=== PATIENT | female | born 1990 | race American Indian/Alaskan Native ===

== ENCOUNTER 2019-04-19 21:45 | Emergency (ER) | payer SELFPAY ==
[2019-04-20] MEDS ORDERED: TORADOL IM ONE (00:21)
--- NOTE | 2019-04-20 00:51 | XRay Report ---
CHEST 2 VIEWS INDICATION / CLINICAL INFORMATION: R chest pain. COMPARISON: None available. FINDINGS: SUPPORT DEVICES: None. HEART / MEDIASTINUM: No significant abnormality. LUNGS / PLEURA: No significant pulmonary or pleural abnormality. No pneumothorax. ADDITIONAL FINDINGS: No significant additional findings. IMPRESSION: 1. No acute findings. Signer Name: Pb Nash MD Signed: 04/20/2019 12:47 AM Workstation Name: [id number]
--- NOTE | 2019-04-20 01:02 | Emergency Department Report ---
ED General Adult HPI - General Chief complaint: Extremity Problem,Nontraumatic Stated complaint: RT ARM/SHOULDER PAIN Time Seen by Provider: 04/20/19 00:06 Source: patient Mode of arrival: Ambulatory Limitations: No Limitations - History of Present Illness Initial comments: 28-year-old female presents to ED with complaint of right-sided chest and should er pain. Patient states she has been diagnosed with pleurisy in the past, states today's symptoms are similar in nature to her previous diagnosis, however the pain isn't as bad today. Reports pleuritic pain. She reports shortness of breath when bending down. She denies cough or fever, denies leg pain or swelling. -: days(s) (3) Location: chest, right, upper extremity Radiation: back Quality: sharp Consistency: intermittent Improves with: none Worsens with: movement, other (deep breath) Associated Symptoms: chest pain, shortness of breath. denies: cough, fever/chills, nausea/vomiting - Related Data Previous Rx's Medication Instructions Recorded Last Taken Type Naproxen [Naprosyn] 500 mg PO BID #20 tablet 04/20/19 Unknown Rx Allergies Allergy/AdvReac Type Severity Reaction Status Date / Time No Known Allergies Allergy Unverified 04/19/19 23:09 ED Review of Systems ROS: Stated complaint: RT ARM/SHOULDER PAIN Other details as noted in HPI Comment: All other systems reviewed and negative Constitutional: denies: chills, fever Respiratory: shortness of breath. denies: cough Cardiovascular: chest pain Musculoskeletal: other (denies leg pain and swelling) ED Past Medical Hx - Past Medical History Previous Medical History?: No - Surgical History Past Surgical History?: No - Social History Smoking Status: Never Smoker Substance Use Type: None - Medications Home Medications: Home Medications Medication Instructions Recorded Confirmed Last Taken Type Naproxen [Naprosyn] 500 mg PO BID #20 tablet 04/20/19 Unknown Rx ED Physical Exam - General Limitations: No Limitations General appearance: alert, in no apparent distress - Head Head exam: Present: atraumatic, normocephalic - Eye Eye exam: Present: normal appearance, PERRL, EOMI - ENT ENT exam: Present: mucous membranes moist - Neck Neck exam: Present: normal inspection - Respiratory Respiratory exam: Present: normal lung sounds bilaterally. Absent: respiratory distress, wheezes, rales, rhonchi - Cardiovascular Cardiovascular Exam: Present: regular rate, normal rhythm - GI/Abdominal GI/Abdominal exam: Present: soft. Absent: distended, tenderness - Extremities Exam Extremities exam: Present: normal inspection. Absent: pedal edema, calf te nderness - Neurological Exam Neurological exam: Present: alert, oriented X3 - Psychiatric Psychiatric exam: Present: normal affect, normal mood - Skin Skin exam: Present: warm, dry, intact, normal color ED Course Vital Signs 04/19/19 04/20/19 04/20/19 23:09 01:07 02:03 Temperature 98.7 F Pulse Rate 84 Respiratory 16 16 18 Rate Blood Pressure 139/85 Blood Pressure [Right] O2 Sat by Pulse 100 Oximetry 04/20/19 04:20 Temperature Pulse Rate 80 Respiratory 16 Rate Blood Pressure Blood Pressure 135/92 [Right] O2 Sat by Pulse 100 Oximetry ED Medical Decision Making - Lab Data Result diagrams: 04/20/19 01:40 04/20/19 01:40 - Radiology Data Radiology results: report reviewed, image reviewed - Medical Decision Making - vitals normal - CTA Chest obtained due to elevated D-dimer; CTA normal - outpt f/u advised - return precautions given - Differential Diagnosis pleurisy, PE, pneumothorax, pneumonia Critical care attestation.: If time is entered above; I have spent that time in minutes in the direct care of this critically ill patient, excluding procedure time. ED Disposition Clinical Impression: Pleurisy Disposition: DC-01 TO HOME OR SELFCARE Is pt being admited?: No Condition: Stable Instructions: Pleurisy (ED) Prescriptions: Naproxen [Naprosyn] 500 mg PO BID #20 tablet Referrals: PRIMARY MD ERNST [Primary Care Provider] - 3-5 Days [facility] [Provider Group] - 3-5 Days
[2019-04-20 02:03] LABS: Basophils # (Auto) 0.1 K/mm3 (0.0-0.1); Basophils % (Auto) 0.8 % (0.0-1.8); Eosinophils # (Auto) 0.2 K/mm3 (0.0-0.4); Eosinophils % (Auto) 2.5 % (0.0-4.3); Hemoglobin 11.2 gm/dl (10.1-14.3); Lymphocytes # (Auto) 2.5 K/mm3 (1.2-5.4); Lymphocytes % (Auto) 33.8 % (13.4-35.0); Mean Corpuscular HGB Conc 33 % (30-34); Mean Corpuscular Volume 74 fl (79-97); Monocytes # (Auto) 0.5 K/mm3 (0.0-0.8); Platelet Count 320 K/mm3 (140-440); Red Blood Count 4.59 M/mm3 (3.65-5.03); Red Cell Distribution Width 15.3 % (13.2-15.2)
[2019-04-20 02:27] LABS: BUN/Creatinine Ratio 16; Blood Urea Nitrogen 14 mg/dL (7-17); Calcium 9.4 mg/dL (8.4-10.2); Hemolysis Index 6
[2019-04-20 02:28] LABS: INR 1.07 (0.87-1.13)
[2019-04-20 02:29] LABS: Partial Thromboplastin Time 30.7 Sec. (24.2-36.6)
--- NOTE | 2019-04-20 03:48 | Cat Scan Report ---
CTA CHEST WITH IV CONTRAST INDICATION: R chest pain. Right-sided chest pain with dyspnea. TECHNIQUE: Axial CT images were obtained through the chest after injection of 100 mL IV contrast. 3 plane MIP re constructions were produced. All CT scans at this location are performed using CT dose reduction for ALARA by means of automated exposure control. COMPARISON: None available. FINDINGS: PULMONARY ARTERIES: No pulmonary emboli. AORTA AND ARTERIES: No acute abnormality. MEDIASTINUM: No mass, lymphadenopathy or other significant abnormality. The heart is normal in size w ithout a pericardial effusion. The trachea and main bronchi are patent and normal in caliber. LUNGS: No suspicious consolidation, nodule or mass. No pneumothorax or pleural effusion. ADDITIONAL FINDINGS: None. UPPER ABDOMEN: No acute findings. BONES: No significant osseous abnormality. IMPRESSION: 1. No CT evidence for pulmonary embolism. 2. No acute findings. Signer Name: Pb Nash MD Signed: 04/20/2019 3:43 AM Workstation Name: [id number]
[2019-04-20 04:20] VITALS: BP 135/92
== END 2019-04-20 04:20 | disposition home or self-care (01) ==
LOC: ED 21:45
DX: R09.1 Pleurisy (principal); M25.511 Pain in right shoulder
CPT/HCPCS: 36415; 71046; 71275; 80048; 84703; 85025; 85379; 85610; 85730; 96372; 99284; J1885; Q9967

== ENCOUNTER 2019-08-06 14:10 | Emergency (ER) | payer SELFPAY ==
[2019-08-06 15:43] VITALS: BP 128/94
--- NOTE | 2019-08-06 15:52 | Emergency Department Report ---
Chief Complaint: Extremity Problem,Nontraumatic Stated Complaint: LT FOOT SWOLLEN - HPI History of Present Illness: 28 yo F presents to ED w/ left foot pain, mild swelling x 3 days. Pt denies injury. Also denies fever, redness. Reports has not taken anything at home for pain. - ROS Review of Systems: Comment: All other systems reviewed and negative Constitutional: denies: chills, fever Musculoskeletal: per HPI - Exam Vital Signs: Vital Signs 08/06/19 14:16 Temperature 99.0 F Pulse Rate 108 H Respiratory 16 Rate Blood Pressure 128/94 O2 Sat by Pulse 100 Oximetry Physical Exam: - General Limitations: No Limitations General appearance: alert, in no apparent distress - Head Head exam: Present: atraumatic, normocephalic - Eye Eye exam: Present: normal appearance, EOMI - ENT ENT exam: Present: mucous membranes moist - Neck Neck exam: Present: normal inspection - Respiratory Respiratory exam: Present: normal lung sounds bilaterally. Absent: respiratory distress - Cardiovascular Cardiovascular Exam: Present: regular rate, normal rhythm - GI/Abdominal GI/Abdominal exam: Present: soft. Absent: distended, tenderness - Extremities Exam Extremities exam: no significant swelling present to left foot; no erythema present; lateral left foot tenderness; cap refill nml, DP pulse normal - Neurological Exam Neurological exam: Present: alert, oriented X3; no motor or sensory deficits - Psychiatric Psychiatric exam: Present: normal affect, normal mood - Skin Skin exam: Present: warm, dry, intact, normal color MSE screening note: Focused history and physical exam performed. Due to findings the following was ordered: n/a Pt w/ nontraumatic left foot pain. Tender to palpation. No sign of infection. Vitals are normal. Pt advised to take anti-inflammatory medication such as ibuprofen, advised to ice the extremity, and apply an JONELLE wrap. Pt has no emergent medical condition at this time. Outpt resources given. Return precautions given. ED Medical Decision Making - Medical Decision Making Pt w/ nontraumatic left foot pain. Tender to palpation. No sign of infection. Vitals are normal. Pt advised to take anti-inflammatory medication such as ibuprofen, advised to ice the extremity, and apply an JONELLE wrap. Pt has no emergent medical condition at this time. Outpt resources given. Return precautions given. ED Disposition for MSE Clinical Impression: Left foot pain Disposition: Z- MED SCREENING EXAM-LEFT Is pt being admited?: No Condition: Stable Instructions: Arthralgia (ED) Referrals: [facility] [Provider Group] - 3-5 Days [facility] [Outside] - 3-5 Days Time of Disposition: 15:51
== END 2019-08-06 16:20 | disposition left against medical advice (07) ==
LOC: ED 14:10
DX: M79.672 Pain in left foot (principal)
CPT/HCPCS: 99282

== ENCOUNTER 2019-08-13 12:51 | Emergency (ER) | payer SELFPAY ==
--- NOTE | 2019-08-13 13:35 | Event Note ---
ED Screening Note ED Screening Note: 28 yo female presents with right elbow pain and swelling for 2 days. No trauma or injury. This initial assessment/diagnostic orders/clinical plan/treatment(s) is/are subject to change based on patients health status, clinical progression and re- assessment by fellow clinical providers in the ED. Further treatment and workup at subsequent clinical providers discretion. Patient/guardian urged not to elope from the ED as their condition may be serious if not clinically assessed and managed. Initial orders include: xr
--- NOTE | 2019-08-13 14:21 | XRay Report ---
RIGHT, 3 VIEWS INDICATION / CLINICAL INFORMATION: elbow pain swelling. COMPARISON: None available. FINDINGS: No fracture, dislocation, or joint distention is identified. IMPRESSION: Negative exam. Signer Name: Shellie Bernard MD Signed: 08/13/2019 2:17 PM Workstation Name: [id number]
[2019-08-13] MEDS ORDERED: KETOROLAC 30 MG/1 ML INJ IM ONE (20:44)
--- NOTE | 2019-08-13 20:48 | Emergency Department Report ---
Upper Extremity - HPI Chief Complaint: Extremity Injury, Upper Stated Complaint: RT ELBOW PAIN/SWOLLEN Time Seen by Provider: 08/13/19 20:42 Upper Extremity: Right Arm, Right Elbow Occurred When: 2 Days Severity: moderate Symptoms: Yes Pain with Movement, Yes Limited Range of Movement (pain), Yes Swelling (Elbow) Other History: 28-year-old -Turkmen female presents to the emergency room for right elbow and upper arm pain and swelling x2 days. Patient denies any trauma or injury. Patient does admit that she places her elbow on hard surfaces such as her desk and her counters at home. Patient is taken nothing for pain. ED Review of Systems ROS: Stated complaint: RT ELBOW PAIN/SWOLLEN Other details as noted in HPI Comment: All other systems reviewed and negative ED Past Medical Hx - Past Medical History Previous Medical History?: Yes Additional medical history: Vaginal delivery x 4 - Surgical History Past Surgical History?: No - Social History Smoking Status: Never Smoker Substance Use Type: None - Medications Home Medications: Home Medications Medication Instructions Recorded Confirmed Last Taken Type Naproxen [Naprosyn] 500 mg PO BID #20 tablet 04/20/19 Unknown Rx Ibuprofen [Motrin 800 MG tab] 800 mg PO Q8HR PRN #30 tablet 08/13/19 Unknown Rx Upper Extremity Exam - Exam General: Vital signs noted. No distress. Alert and acting appropriately. Head and Torso: No HEENT Abnormality, No Neck Tenderness, No Chest/Lungs Abnormality, No Abdominal Tenderness, No Back Tenderness Shoulder Exam: Yes Normal Range of Motion in Shoulder, No Shoulder Tenderness, No Clavicle Tenderness, No Shoulder Deformity, No AC Joint Tenderness Arm Exam: Yes Arm/Humerus Tenderness, No Arm Deformity Elbow: Yes Elbow Tenderness, No Normal Range of Motion in Elbow (Pain with movement and swelling) Forearm: No Forearm Tenderness, No Forearm Deformity, No Pain with Pronation, No Pain with Supination Wrist: Yes Normal ROM in Wrist, No Wrist Tenderness, No Wrist Deformity, No Snuffbox Tenderness, No Pain with Axial Thumb Compression Hand: Yes Normal ROM in Digit(s), No Hand Tenderness, No Hand Deformity, No Digit Tenderness, No Digit(s) Deformity, No Tendon Dysfunction CMS Exam: No Broken Skin, No Normal Distal Pulses, No Normal Capillary Refill, No Normal Distal Sensation ED Course Vital Signs 08/13/19 12:59 Temperature 98.8 F Pulse Rate 97 H Respiratory 16 Rate Blood Pressure 139/80 O2 Sat by Pulse 100 Oximetry ED Medical Decision Making - Radiology Data Radiology results: report reviewed Patient: RAMONA BERNAL MR#: [id number] : 1990 Acct:[id number] Age/Sex: 28 / F ADM Date: 08/13/19 Loc: ED Attending Dr: Ordering Physician: Radha Velazquez MD Date of Service: 08/13/19 Procedure(s): XR elbow 3+V RT Accession Number(s): [id number] cc: Radha Velazquez MD Fluoro Time In Minutes: RIGHT, 3 VIEWS INDICATION / CLINICAL INFORMATION: elbow pain swelling. COMPARISON: None available. FINDINGS: No fracture, dislocation, or joint distention is identified. IMPRESSION: Negative exam. Signer Name: Shellie Bernard MD Signed: 08/13/2019 2:17 PM Workstation Name: [id number] Transcribed By: JR Dictated By: Shellie Bernard MD Electronically Authenticated By: Shellie Bernard MD Signed Date/Time: 08/13/191416 DD/ 15 TD/TT: - Medical Decision Making 28-year-old -Turkmen female presents to the emergency room for right elbow and upper arm pain and swelling x2 days. Patient denies any trauma or injury. Patient does admit that she places her elbow on hard surfaces such as her desk and her counters at home. Patient is taken nothing for pain. X-ray of right arm and elbow are negative for any acute abnormalities. Patient appears to have a right olecranon bursitis. Discussed with patient we will give her a Toradol injection for pain management send her home with this prescription for ibuprofen 800 mg every 6-8 hours as needed. Also discussed with patient we will wrap her right elbow with an Mauricio bandage and refer her to Dr. Villagomez. Patient verbalized understanding Critical care attestation.: If time is entered above; I have spent that time in minutes in the direct care of this critically ill patient, excluding procedure time. ED Disposition Clinical Impression: Olecranon bursitis of right elbow Disposition: DC-01 TO HOME OR SELFCARE Is pt being admited?: No Does the pt Need Aspirin: No Condition: Stable Instructions: Elbow Bursitis (ED) Additional Instructions: X-rays negative for any acute abnormalities. It appears that you have a or chronic bursitis of the right elbow. Treatment is ibuprofen or Aleve Tylenol. Mauricio wrap light duty follow-up with orthopedic provider. Prescriptions: Ibuprofen [Motrin 800 MG tab] 800 mg PO Q8HR PRN #30 tablet PRN Reason: Pain , Severe (7-10) Referrals: PRIMARY CARE, [Primary Care Provider] - 3-5 Days Forms: Work/School Release Form(ED)
[2019-08-13 21:03] VITALS: BP 124/76
== END 2019-08-13 21:01 | disposition home or self-care (01) ==
LOC: ED 12:51
DX: M70.21 Olecranon bursitis, right elbow (principal)
CPT/HCPCS: 73080; 96372; 99283; J1885

== ENCOUNTER 2020-03-04 10:50 | Emergency (ER) | payer SELFPAY ==
[2020-03-04 10:58] VITALS: BP 118/80
[2020-03-04] MEDS ORDERED: IBUPROFEN 800 MG TAB PO ONE (11:57)
--- NOTE | 2020-03-04 11:57 | Emergency Department Report ---
ED Lower Extremity HPI - General Chief Complaint: Extremity Injury, Lower Stated Complaint: LT FT SWOLLEN Time Seen by Provider: 03/04/20 11:31 Source: patient Mode of arrival: Ambulatory Limitations: No Limitations - History of Present Illness Initial Comments: This is a 29-year-old female nontoxic, well nourished in appearance, no acute signs of distress presents to the ED with c/o of left foot pain and swelling 1 week. Patient denies any trauma. Patient denies any numbness, tingling, fever, chills, nausea, vomiting, chest pain, shortness of breath, headache, stiff neck. Patient denies any joint swelling or joint redness. Patient denies decreased range of motion. Patient stated has decreased gait due to pain. Patient denies any allergies or significant past medical history. MD Complaint: foot injury -: days(s) Injury: Foot: Left Severity: mild Severity scale (0 -10): 8 Improves With: immobilization Worsens With: weight bearing, movement, palpation Associated Symptoms: swelling, able to partially bear weight. denies: snap/pop sensation, numbness, tingling, unable to bear weight - Related Data Previous Rx's Medication Instructions Recorded Last Taken Type Naproxen [Naprosyn] 500 mg PO BID #20 tablet 04/20/19 Unknown Rx Ibuprofen [Motrin 800 MG tab] 800 mg PO Q8HR PRN #30 tablet 08/13/19 Unknown Rx Naproxen 500 mg PO Q12H PRN #12 tablet 03/04/20 Unknown Rx Allergies Allergy/AdvReac Type Severity Reaction Status Date / Time No Known Allergies Allergy Unverified 04/19/19 23:09 ED Review of Systems ROS: Stated complaint: LT FT SWOLLEN Other details as noted in HPI Constitutional: denies: chills, fever Eyes: denies: eye pain, eye discharge, vision change ENT: denies: ear pain, throat pain Respiratory: denies: cough, shortness of breath, wheezing Cardiovascular: denies: chest pain, palpitations Endocrine: no symptoms reported Gastrointestinal: denies: abdominal pain, nausea, diarrhea Genitourinary: denies: urgency, dysuria, discharge Musculoskeletal: denies: back pain, joint swelling, arthralgia Skin: denies: rash, lesions Neurological: denies: headache, weakness, paresthesias Psychiatric: denies: anxiety, depression Hematological/Lymphatic: denies: easy bleeding, easy bruising ED Past Medical Hx - Past Medical History Previous Medical History?: No Additional medical history: Vaginal delivery x 4 - Surgical History Past Surgical History?: No - Social History Smoking Status: Never Smoker Substance Use Type: None - Medications Home Medications: Home Medications Medication Instructions Recorded Confirmed Last Taken Type Naproxen [Naprosyn] 500 mg PO BID #20 tablet 04/20/19 Unknown Rx Ibuprofen [Motrin 800 MG tab] 800 mg PO Q8HR PRN #30 tablet 08/13/19 Unknown Rx Naproxen 500 mg PO Q12H PRN #12 tablet 03/04/20 Unknown Rx ED Physical Exam - General Limitations: No Limitations General appearance: alert, in no apparent distress - Head Head exam: Present: atraumatic, normocephalic - Neck Neck exam: Present: normal inspection, full ROM. Absent: tenderness, meningismus, lymphadenopathy - Extremities Exam Extremities exam: Present: full ROM, tenderness, normal capillary refill. Absent: joint swelling - Expanded Lower Extremity Exam Left Hip exam: Present: normal inspection, full ROM. Absent: tenderness, swelling Upper Leg exam: Present: normal inspection, full ROM. Absent: tenderness, swelling Knee exam: Present: normal inspection, full ROM. Absent: tenderness, swelling Lower Leg exam: Present: normal inspection, full ROM. Absent: tenderness, swelling, abrasion, laceration, ecchymosis, deformity, crepidus, dislocation, erythema, palpable cord, Maria De Jesus's sign Ankle exam: Present: normal inspection, full ROM. Absent: tenderness, swelling, abrasion, laceration, ecchymosis, deformity, crepidus, dislocation, erythema, anterior draw sign Foot/Toe exam: Present: full ROM, tenderness, swelling. Absent: abrasion, laceration, ecchymosis, deformity, crepidus, dislocation, erythema, amputation, puncture wound, foreign body, calcaneal tenderness, tenderness at base of 5th metatarsal, nail avulsion, subungual hematoma Neuro vascular tendon exam: Present: no vascular compromise Gait: Positive: observed and limited by pain - Back Exam Back exam: Present: full ROM - Neurological Exam Neurological exam: Present: alert, oriented X3 - Psychiatric Psychiatric exam: Present: normal affect, normal mood - Skin Skin exam: Present: warm, dry, intact, normal color. Absent: rash ED Course Vital Signs 03/04/20 10:54 Temperature 97.8 F Pulse Rate 80 Respiratory 18 Rate Blood Pressure 118/80 O2 Sat by Pulse 100 Oximetry - Reevaluation(s) Reevaluation #1: 03/04/20 11:56 Patient is speaking in full sentences with no signs of distress noted. ED Lower Extremity MDM - Lab Data Lab Results 03/04/20 Range/Units 12:07 Uric Acid 5.0 (3.5-7.6) mg/dL - Radiology Data Referring Physician: BETH WOLF Patient Name: RAMONA BERNAL Date of : 1990 Sex: Female Report Date: 2020-03-04 Report Status: Finalized [address] [address] XRay Report Signed Patient: RAMONA BERNAL MR#: [id number] : 1990 Acct:[id number] Age/Sex: 29 / F ADM Date: 03/04/20 Loc: ED Attending Dr: Ordering Physician: BETH WOLF NP Date of Service: 03/04/20 Procedure(s): XR foot 3+V LT Accession Number(s): [id number] cc: BETH WOLF NP Fluoro Time In Minutes: LEFT FOOT 3 VIEW(S) INDICATION / CLINICAL INFORMATION: left foot pain and swelling COMPARISON: None available. FINDINGS: BONES / JOINT(S): No acute fracture or subluxation. No significant arthritis. SOFT TISSUES: No significant abnormality. ADDITIONAL FINDINGS: None. IMPRESSION: No acute osseous abnormality. Signer Name: Shaneka Lee MD Signed: 03/04/2020 12:13 PM Workstation Name: [id number] Transcribed By: Dictated By: SHANEKA LEE Electronically Authenticated By: SHANEKA LEE Signed Date/Time: 03/04/20 1213 - Medical Decision Making This is a 29-year-old female that presents with left foot strain. Patient is stable and was examined by me. I referred patient to an orthopedic doctor for further evaluation for possible MRI. X-ray has been obtained and dictated by the radiologist. Patient is notified of the x-ray report with noted by the patient. No joint swelling. No ecchymosis. no joint redness or swelling. Not warm to touch. No signs of cellulites present. Patient was instructed to RICE therapy. Patient received Motrin for pain. Patient is discharged with Naproxen. At time of discharge, the patient does not seem toxic or ill in appearance. No acute signs of distress noted. Patient agrees to discharge treatment plan of care. No further questions noted by the patient. Critical care attestation.: If time is entered above; I have spent that time in minutes in the direct care of this critically ill patient, excluding procedure time. ED Disposition Clinical Impression: Strain of left foot Qualifiers: Encounter type: initial encounter Qualified Code(s): S96.912A - Strain of unspecified muscle and tendon at ankle and foot level, left foot, initial encounter Disposition: TO HOME OR SELFCARE Is pt being admited?: No Does the pt Need Aspirin: No Condition: Stable Instructions: RICE Therapy (ED) Additional Instructions: Follow-up with a orthopedic doctor in 3-5 days or if symptoms worsen and continue return to emergency room as soon as possible. Prescriptions: Naproxen 500 mg PO Q12H PRN #12 tablet PRN Reason: Pain , Severe (7-10) Referrals: ARNALDO REEDBATH MD SUDEEP [Primary Care Provider] - 3-5 Days PRIMARY CAREMD [Referring] - 3-5 Days EMILIANA HOLGUIN MD [Staff Physician] - 3-5 Days Forms: Work/School Release Form(ED)
--- NOTE | 2020-03-04 12:17 | XRay Report ---
LEFT FOOT 3 VIEW(S) INDICATION / CLINICAL INFORMATION: left foot pain and swelling COMPARISON: None available. FINDINGS: BONES / JOINT(S): No acute fracture or subluxation. No significant arthritis. SOFT TISSUES: No significant abnormality. ADDITIONAL FINDINGS: None. IMPRESSION: No acute osseous abnormality. Signer Name: Ryland Lee MD Signed: 03/04/2020 12:13 PM Workstation Name: [id number]
== END 2020-03-04 13:41 | disposition home or self-care (01) ==
LOC: ED 10:50
DX: S96.912A Strain of unspecified muscle and tendon at ankle and foot level, left foot, initial encounter (principal); Z79.899 Other long term (current) drug therapy; X58.XXXA Exposure to other specified factors, initial encounter; Y93.89 Activity, other specified; Y92.89 Other specified places as the place of occurrence of the external cause; Y99.8 Other external cause status
CPT/HCPCS: 36415; 84550

== ENCOUNTER 2020-05-03 11:18 | Emergency (ER) | payer SELFPAY ==
[2020-05-03 11:24] VITALS: BP 120/79
--- NOTE | 2020-05-03 12:02 | XRay Report ---
LEFT KNEE 3 VIEWS INDICATION / CLINICAL INFORMATION: pain, no injury COMPARISON: None available. FINDINGS: BONES / JOINT(S): No acute fracture or subluxation. No significant arthritis. SOFT TISSUES: There is a small effusion in the suprapatella bursa. ADDITIONAL FINDINGS: None. Signer Name: Jus Flaherty MD Signed: 05/03/2020 11:58 AM Workstation Name: [id number]
--- NOTE | 2020-05-03 12:27 | Emergency Department Report ---
ED Lower Extremity HPI - General Chief Complaint: Extremity Injury, Lower Stated Complaint: LT KNEE SWOLLEN Time Seen by Provider: 05/03/20 12:07 Source: patient Mode of arrival: Ambulatory Limitations: No Limitations - History of Present Illness Initial Comments: This is a 29-year-old female nontoxic, well nourished in appearance, no acute signs of distress presents to the ED with c/o of left knee pain 2 days. Patient denies any injuires or trauma. Patient denies any numbness, tingling, fever, chills, nausea, vomiting, chest pain, shortness of breath, headache, stiff neck. Patient denies any joint swelling or joint redness. Patient denies decreased range of motion. Patient stated has decreased gait due to pain. Patient denies any allergies or significant past medical history. MD Complaint: knee injury -: days(s) Injury: Knee: Left Severity: mild Severity scale (0 -10): 8 Improves With: immobilization Worsens With: weight bearing, movement, palpation Associated Symptoms: ambulatory. denies: snap/pop sensation, swelling, numbness, tingling, unable to bear weight, able to partially bear weight - Related Data Previous Rx's Medication Instructions Recorded Last Taken Type Naproxen [Naprosyn] 500 mg PO BID #20 tablet 04/20/19 Unknown Rx Ibuprofen [Motrin 800 MG tab] 800 mg PO Q8HR PRN #30 tablet 08/13/19 Unknown Rx Naproxen 500 mg PO Q12H PRN #12 tablet 03/04/20 Unknown Rx Naproxen 500 mg PO Q12H PRN #12 tablet 05/03/20 Unknown Rx Allergies Allergy/AdvReac Type Severity Reaction Status Date / Time No Known Allergies Allergy Verified 05/03/20 11:21 ED Review of Systems ROS: Stated complaint: LT KNEE SWOLLEN Other details as noted in HPI Constitutional: denies: chills, fever Eyes: denies: eye pain, eye discharge, vision change ENT: denies: ear pain, throat pain Respiratory: denies: cough, shortness of breath, wheezing Cardiovascular: denies: chest pain, palpitations Endocrine: no symptoms reported Gastrointestinal: denies: abdominal pain, nausea, diarrhea Genitourinary: denies: urgency, dysuria, discharge Musculoskeletal: denies: back pain, joint swelling, arthralgia Skin: denies: rash, lesions Neurological: denies: headache, weakness, paresthesias Psychiatric: denies: anxiety, depression Hematological/Lymphatic: denies: easy bleeding, easy bruising ED Past Medical Hx - Past Medical History Previous Medical History?: No Additional medical history: Vaginal delivery x 4 - Surgical History Past Surgical History?: No - Social History Smoking Status: Never Smoker Substance Use Type: None - Medications Home Medications: Home Medications Medication Instructions Recorded Confirmed Last Taken Type Naproxen [Naprosyn] 500 mg PO BID #20 tablet 04/20/19 Unknown Rx Ibuprofen [Motrin 800 MG tab] 800 mg PO Q8HR PRN #30 tablet 08/13/19 Unknown Rx Naproxen 500 mg PO Q12H PRN #12 tablet 03/04/20 Unknown Rx Naproxen 500 mg PO Q12H PRN #12 tablet 05/03/20 Unknown Rx ED Physical Exam - General Limitations: No Limitations General appearance: alert, in no apparent distress - Head Head exam: Present: atraumatic, normocephalic - Eye Eye exam: Present: normal appearance - Neck Neck exam: Present: normal inspection, full ROM - Respiratory Respiratory exam: Absent: respiratory distress - Cardiovascular Cardiovascular Exam: Present: regular rate - Extremities Exam Extremities exam: Present: normal inspection, full ROM, tenderness, normal capillary refill. Absent: joint swelling, calf tenderness - Expanded Lower Extremity Exam Left Hip exam: Present: normal inspection, full ROM. Absent: tenderness, swelling Upper Leg exam: Present: normal inspection, full ROM. Absent: tenderness, swelling Knee exam: Present: normal inspection, full ROM, tenderness, full knee exte nsion. Absent: swelling, abrasion, laceration, ecchymosis, deformity, crepidus, dislocation, erythema, effusion, pain w/ pronation/supination, posterior draw sign, pain/laxity with valgus, pain/laxity with varus Lower Leg exam: Present: normal inspection, full ROM. Absent: tenderness, swelling Ankle exam: Present: normal inspection, full ROM. Absent: tenderness, swelling Foot/Toe exam: Present: normal inspection, full ROM. Absent: tenderness, swelling Neuro vascular tendon exam: Present: no vascular compromise Gait: Positive: observed and normal 1 - pain here - Back Exam Back exam: Present: normal inspection, full ROM - Neurological Exam Neurological exam: Present: alert, oriented X3, normal gait - Psychiatric Psychiatric exam: Present: normal affect, normal mood - Skin Skin exam: Present: warm, dry, intact, normal color. Absent: rash ED Course Vital Signs 05/03/20 11:21 Temperature 97.6 F Pulse Rate 94 H Respiratory 20 Rate Blood Pressure 120/79 [Left] O2 Sat by Pulse 100 Oximetry - Reevaluation(s) Reevaluation #2: 05/03/20 12:25 Patient is speaking in full sentences with no signs of distress noted. ED Lower Extremity MDM - Lab Data Referring Physician: RUT TOLEDO Patient Name: RAMONA BERNAL Date of : 1990 Sex: Female Report Date: 2020-05-03 Report Status: [place] [address] XRay Report Signed Patient: RAMONA BERNAL MR#: [id number] : 1990 Acct:[id number] Age/Sex: 29 / F ADM Date: 05/03/20 Loc: ED Attending Dr: Ordering Physician: RUT TOLEDO Date of Service: 05/03/20 Procedure(s): XR knee 3V LT Accession Number(s): [id number] cc: RUT TOLEDO Fluoro Time In Minutes: LEFT KNEE 3 VIEWS INDICATION / CLINICAL INFORMATION: pain, no injury COMPARISON: None available. FINDINGS: BONES / JOINT(S): No acute fracture or subluxation. No significant arthritis. SOFT TISSUES: There is a small effusion in the suprapatella bursa. ADDITIONAL FINDINGS: None. Signer Name: Jus Flaherty MD Signed: 05/03/2020 11:58 AM Workstation Name: [id number] Transcribed By: SS Dictated By: Jus Flaherty MD Electronically Authenticated By: Jus Flaherty MD Signed Date/Time: 05/03/20 1158 DD/ 1157 TD/TT: - Medical Decision Making This is a 29-year-old female that presents with left knee strain. Patient is stable and was examined by me. I referred patient to an orthopedic doctor for further evaluation for possible MRI. X-ray has been obtained and dictated by the radiologist. Patient is notified of the x-ray report with noted by the patient. Patient does have normal gait with no tenderness and no joint swelling. No ecchymosis. no joint redness or swelling. Not warm to touch. No signs of cellulites present. Patient received azul wrap. Patient was instructed to RICE therapy. Patient is discharged with Naproxen. At time of discharge, the patient does not seem toxic or ill in appearance. No acute signs of distress noted. Patient agrees to discharge treatment plan of care. No further questions noted by the patient. Critical care attestation.: If time is entered above; I have spent that time in minutes in the direct care of this critically ill patient, excluding procedure time. ED Disposition Clinical Impression: Suprapatellar bursitis of left knee Strain of left knee Qualifiers: Encounter type: initial encounter Qualified Code(s): S86.912A - Strain of unspecified muscle(s) and tendon(s) at lower leg level, left leg, initial encounter Disposition: DC-01 TO HOME OR SELFCARE Is pt being admited?: No Does the pt Need Aspirin: No Condition: Stable Instructions: RICE Therapy for Routine Care of Injuries, [id number], Acute Knee Pain, Adult, Bursitis, [id number]-[id number] Additional Instructions: Follow-up with a orthopedic doctor in 3-5 days or if symptoms worsen and continue return to emergency room as soon as possible. No physical activity that extremity until cleared by orthopedic doctor Prescriptions: Naproxen 500 mg PO Q12H PRN #12 tablet PRN Reason: Pain , Severe (7-10) Referrals: PRIMARY MD ERNST [Primary Care Provider] - 3-5 Days EMILIANA HOLGUIN MD [Staff Physician] - 3-5 Days Forms: Work/School Release Form(ED)
== END 2020-05-03 12:43 | disposition home or self-care (01) ==
LOC: ED 11:18
DX: S86.912A Strain of unspecified muscle(s) and tendon(s) at lower leg level, left leg, initial encounter (principal); M70.42 Prepatellar bursitis, left knee; X58.XXXA Exposure to other specified factors, initial encounter; Y93.89 Activity, other specified; Y92.89 Other specified places as the place of occurrence of the external cause; Y99.8 Other external cause status
CPT/HCPCS: 99283

== ENCOUNTER 2021-03-23 05:07 | Emergency (ER) | payer SELFPAY | END 2021-03-23 07:30 | disposition left against medical advice (07) | LOC: ED 05:07 | DX: M79.604 Pain in right leg (principal); Z53.21 Procedure and treatment not carried out due to patient leaving prior to being seen by health care provider ==

== ENCOUNTER 2021-04-27 09:32 | Emergency (ER) | payer SELFPAY ==
[2021-04-27] MEDS ORDERED: dexAMETHasone 20 MG/5 ML VIAL IM ONE (10:36)
[2021-04-27] MEDS ORDERED: KETOROLAC 60 MG/2 ML INJ IM ONE (10:36)
--- NOTE | 2021-04-27 10:39 | Emergency Department Report ---
ED General Adult HPI - General Chief complaint: Extremity Injury, Lower Stated complaint: rt foot pain,can walk swollen Time Seen by Provider: 04/27/21 10:29 Source: patient Mode of arrival: Wheelchair Limitations: No Limitations - History of Present Illness Initial comments: Patient is a 30-year-old female presents emergency with complaints of right foot pain and swelling that began last night. She denies any fall or injury. Patient has had issues with multiple joints in the past causing pain and swelling. She has never followed up with a primary care doctor. She denies any numbness or weakness. She has pain with ambulation. No past medical history. No allergies to medications. - Related Data Previous Rx's Medication Instructions Recorded Last Taken Type Naproxen [Naprosyn] 500 mg PO BID #20 tablet 04/20/19 Unknown Rx Ibuprofen [Motrin 800 MG tab] 800 mg PO Q8HR PRN #30 tablet 08/13/19 Unknown Rx Naproxen 500 mg PO Q12H PRN #12 tablet 03/04/20 Unknown Rx Naproxen 500 mg PO Q12H PRN #12 tablet 05/03/20 Unknown Rx Colchicine 0.6 mg PO ONCE 1 Days #3 tablet 04/27/21 Unknown Rx Naproxen 500 mg PO BID PRN #20 tablet 04/27/21 Unknown Rx predniSONE [Deltasone] 40 mg PO QDAY 5 Days #10 tab 04/27/21 Unknown Rx Allergies Allergy/AdvReac Type Severity Reaction Status Date / Time No Known Allergies Allergy Verified 04/27/21 09:40 ED Review of Systems ROS: Stated complaint: rt foot pain,can walk swollen Other details as noted in HPI Comment: All other systems reviewed and negative ED Past Medical Hx - Past Medical History Previous Medical History?: No Additional medical history: Vaginal delivery x 4 - Surgical History Past Surgical History?: No - Social History Smoking Status: Never Smoker Substance Use Type: None - Medications Home Medications: Home Medications Medication Instructions Recorded Confirmed Last Taken Type Naproxen [Naprosyn] 500 mg PO BID #20 tablet 04/20/19 Unknown Rx Ibuprofen [Motrin 800 MG tab] 800 mg PO Q8HR PRN #30 tablet 08/13/19 Unknown Rx Naproxen 500 mg PO Q12H PRN #12 tablet 03/04/20 Unknown Rx Naproxen 500 mg PO Q12H PRN #12 tablet 05/03/20 Unknown Rx Colchicine 0.6 mg PO ONCE 1 Days #3 tablet 04/27/21 Unknown Rx Naproxen 500 mg PO BID PRN #20 tablet 04/27/21 Unknown Rx predniSONE [Deltasone] 40 mg PO QDAY 5 Days #10 tab 04/27/21 Unknown Rx ED Physical Exam - General Limitations: No Limitations General appearance: alert, in no apparent distress - Head Head exam: Present: atraumatic, normocephalic - Eye Eye exam: Present: normal appearance - ENT ENT exam: Present: mucous membranes moist - Extremities Exam Extremities exam: Present: other (ttp to the right dorsal foot, mild edema and increased warmth, no erythema, FROM, neurovascularly intact) - Neurological Exam Neurological exam: Present: alert, oriented X3 - Psychiatric Psychiatric exam: Present: normal affect, normal mood - Skin Skin exam: Present: warm, dry ED Course Vital Signs 04/27/21 04/27/21 09:40 12:32 Temperature 98.7 F Pulse Rate 80 84 Respiratory 17 16 Rate Blood Pressure 106/74 Blood Pressure 118/75 [Left] O2 Sat by Pulse 95 100 Oximetry ED Medical Decision Making - Medical Decision Making Patient is a 30-year-old female presents emergency with complaints of right foot pain and swelling that began last night. She denies any fall or injury. Patient has had issues with multiple joints in the past causing pain and swelling. She has never followed up with a primary care doctor. She denies any numbness or weakness. She has pain with ambulation. No past medical history. No allergies to medications. Vitals are normal. On exam:ttp to the right dorsal foot, mild edema and increased warmth, no erythema, FROM, neurovascularly intact. Examination appears likely consistent with gout versus another arthropathy. Advised patient that she needed outpatient primary care follow-up regarding her joint pains. Patient has had no acute trauma. Do not suspect septic joint or cellulitis at this time. Patient is requesting crutches as she states ambulating on the foot increases her pain. Patient given Toradol and dexamethasone while in the emergency department with improvement of her symptoms. Given prescription for medications. Advised patient Please take medication as prescribed. Follow-up with a primary care doctor. Return to emergency room for any new or worsening symptoms. Critical care attestation.: If time is entered above; I have spent that time in minutes in the direct care of this critically ill patient, excluding procedure time. ED Disposition Clinical Impression: Foot swelling Foot pain Qualifiers: Laterality: right Qualified Code(s): M79.671 - Pain in right foot Disposition: 01 HOME / SELF CARE / HOMELESS Is pt being admited?: No Does the pt Need Aspirin: No Condition: Stable Instructions: Low-Purine Eating Plan Additional Instructions: Please take medication as prescribed. Follow-up with a primary care doctor. Return to emergency room for any new or worsening symptoms. Prescriptions: Colchicine 0.6 mg PO ONCE 1 Days #3 tablet predniSONE [Deltasone] 40 mg PO QDAY 5 Days #10 tab Naproxen 500 mg PO BID PRN #20 tablet PRN Reason: pain Referrals: CARMEN CALI MD [Staff Physician] - 3-5 Days [facility] [Provider Group] - 3-5 Days [facility], [LAB/CONTRACT] - 3-5 Days [facility] [Outside] - 3-5 Days [facility] [Outside] - 3-5 Days Time of Disposition: 10:37 Print Language: LITHUANIAN
[2021-04-27 12:37] VITALS: BP 118/75
== END 2021-04-27 12:37 | disposition home or self-care (01) ==
LOC: ED 09:32
DX: M79.671 Pain in right foot (principal); R22.41 Localized swelling, mass and lump, right lower limb; Z79.899 Other long term (current) drug therapy
CPT/HCPCS: 96372; 99282; J1100; J1885

== ENCOUNTER 2021-06-10 15:04 | Emergency (ER) | payer SELFPAY ==
[2021-06-10 15:46] VITALS: BP 121/67
--- NOTE | 2021-06-10 16:37 | XRay Report ---
RIGHT FOOT 3 VIEWS INDICATION: fall, right foot pain. COMPARISON: No relevant prior imaging study available. FINDINGS: No acute, displaced fracture or dislocation is seen. No foreign bodies in the soft tissues. No signif icant degenerative changes. IMPRESSION: 1. No acute findings. Signer Name: Favio Jernigan MD Signed: 06/10/2021 4:32 PM Workstation Name: [id number]
--- NOTE | 2021-06-10 16:47 | Emergency Department Report ---
ED Extremity Problem HPI - General Chief complaint: Extremity Injury, Lower Stated complaint: R FOOT SWOLLEN, HARD TO WALK Time Seen by Provider: 06/10/21 15:48 Source: patient Mode of arrival: Ambulatory Limitations: No Limitations - History of Present Illness Initial comments: Patient is a 30-year-old female presents emergency room complaints of right foot pain that exacerbated yesterday. She reports that she tripped and fell down four steps. She states since then she has had increase of her foot pain and swelling. Patient states that she typically experiences swelling and pain in this foot and was referred to an orthopedic doctor and a primary care doctor but states that she could not get an appointment until June. She is ambulatory but states that she does have some discomfort with ambulation. She denies any redness, increased warmth, rashes, fever, chills, vomiting, numbness, weakness. No allergies to medications. Severity scale (0 -10): 10 - Related Data Previous Rx's Medication Instructions Recorded Last Taken Type Naproxen [Naprosyn] 500 mg PO BID #20 tablet 04/20/19 Unknown Rx Ibuprofen [Motrin 800 MG tab] 800 mg PO Q8HR PRN #30 tablet 08/13/19 Unknown Rx Naproxen 500 mg PO Q12H PRN #12 tablet 03/04/20 Unknown Rx Naproxen 500 mg PO Q12H PRN #12 tablet 05/03/20 Unknown Rx Colchicine 0.6 mg PO ONCE 1 Days #3 tablet 04/27/21 Unknown Rx Naproxen 500 mg PO BID PRN #20 tablet 04/27/21 Unknown Rx predniSONE [Deltasone] 40 mg PO QDAY 5 Days #10 tab 04/27/21 Unknown Rx Indomethacin [Indocin] 25 mg PO Q8H PRN #21 capsule 06/10/21 Unknown Rx Allergies Allergy/AdvReac Type Severity Reaction Status Date / Time No Known Allergies Allergy Verified 06/10/21 15:46 ED Review of Systems ROS: Stated complaint: R FOOT SWOLLEN, HARD TO WALK Other details as noted in HPI Comment: All other systems reviewed and negative ED Past Medical Hx - Past Medical History Additional medical history: Vaginal delivery x 4 - Social History Smoking Status: Never Smoker Substance Use Type: None - Medications Home Medications: Home Medications Medication Instructions Recorded Confirmed Last Taken Type Naproxen [Naprosyn] 500 mg PO BID #20 tablet 04/20/19 Unknown Rx Ibuprofen [Motrin 800 MG tab] 800 mg PO Q8HR PRN #30 tablet 08/13/19 Unknown Rx Naproxen 500 mg PO Q12H PRN #12 tablet 03/04/20 Unknown Rx Naproxen 500 mg PO Q12H PRN #12 tablet 05/03/20 Unknown Rx Colchicine 0.6 mg PO ONCE 1 Days #3 tablet 04/27/21 Unknown Rx Naproxen 500 mg PO BID PRN #20 tablet 04/27/21 Unknown Rx predniSONE [Deltasone] 40 mg PO QDAY 5 Days #10 tab 04/27/21 Unknown Rx Indomethacin [Indocin] 25 mg PO Q8H PRN #21 capsule 06/10/21 Unknown Rx ED Physical Exam - General Limitations: No Limitations General appearance: alert, in no apparent distress - Head Head exam: Present: atraumatic, normocephalic - Eye Eye exam: Present: normal appearance - ENT ENT exam: Present: mucous membranes moist - Extremities Exam Extremities exam: Present: other (ttp to the right dorsal foot, mild edema, no ecchymosis, no deformity, FROM, neurovascularly intact, no ankle or digit ttp) - Neurological Exam Neurological exam: Present: alert, oriented X3 - Psychiatric Psychiatric exam: Present: normal affect, normal mood - Skin Skin exam: Present: warm, dry, intact ED Course Vital Signs 06/10/21 15:44 Temperature 98 F Pulse Rate 83 Respiratory 16 Rate Blood Pressure 121/67 [Left] O2 Sat by Pulse 100 Oximetry ED Medical Decision Making - Radiology Data Radiology results: report reviewed Ordering Physician: WHITNEY HENDERSON Date of Service: 06/10/21 Procedure(s): XR foot 3+V RT Accession Number(s): [id number] cc: WHITNEY HENDERSON Fluoro Time In Minutes: RIGHT FOOT 3 VIEWS INDICATION: fall, right foot pain. COMPARISON: No relevant prior imaging study available. FINDINGS: No acute, displaced fracture or dislocation is seen. No foreign bodies in the soft tissues. No significant degenerative changes. IMPRESSION: 1. No acute findings. Signer Name: Favio Jernigan MD Signed: 06/10/2021 4:32 PM Workstation Name: [id number] Transcribed By: GRACE Dictated By: Favio Jernigan MD Electronically Authenticated By: Favio Jernigan MD Signed Date/Time: 06/10/211631 DD/ 29 TD/TT: - Medical Decision Making Patient is a 30-year-old female presents emergency room complaints of right foot pain that exacerbated yesterday. She reports that she tripped and fell down four steps. She states since then she has had increase of her foot pain and swelling. Patient states that she typically experiences swelling and pain in this foot and was referred to an orthopedic doctor and a primary care doctor but states that she could not get an appointment until June. She is ambulatory but states that she does have some discomfort with ambulation. She denies any redness, increased warmth, rashes, fever, chills, vomiting, numbness, weakness. No allergies to medications. Vitals are normal. On exam:ttp to the right dorsal foot, mild edema, no ecchymosis, no deformity, FROM, neurovascularly intact, no ankle or digit ttp. Given the patient did have a fall down the stairs x-ray was ordered to rule out acute fracture dislocation. X-ray right foot 1. No acute findings. Symptoms could be related to foot sprain. Also advised patient that she needs outpatient follow-up with orthopedic and primary care to rule out arthropathy. Discussed the importance of follow-up. Patient placed in postop shoe and given crutches by tech reamined neurovascular intact. advised pt Please take medication as prescribed. Follow-up with orthopedic doctor. Follow-up with your primary care doctor. Return to emergency room for any new or worsening symptoms Critical care attestation.: If time is entered above; I have spent that time in minutes in the direct care of this critically ill patient, excluding procedure time. ED Disposition Clinical Impression: Right foot pain Disposition: HOME / SELF CARE / HOMELESS Is pt being admited?: No Does the pt Need Aspirin: No Condition: Stable Instructions: Foot Pain Additional Instructions: Please take medication as prescribed. Follow-up with orthopedic doctor. Follow-up with your primary care doctor. Return to emergency room for any new or worsening symptoms Prescriptions: Indomethacin [Indocin] 25 mg PO Q8H PRN #21 capsule PRN Reason: pain Referrals: [facility] [Provider Group] - 3-5 Days YUMIKO GOMEZ MD [Staff Physician] - 3-5 Days your, primary care doctor [Other] - 3-5 Days Time of Disposition: 16:46 Print Language: WELSH
== END 2021-06-10 17:45 | disposition home or self-care (01) ==
LOC: ED 15:04
DX: M79.671 Pain in right foot (principal); W01.0XXA Fall on same level from slipping, tripping and stumbling without subsequent striking against object, initial encounter; Y93.89 Activity, other specified; Y92.89 Other specified places as the place of occurrence of the external cause; Y99.8 Other external cause status; Z98.890 Other specified postprocedural states; Z79.899 Other long term (current) drug therapy
CPT/HCPCS: 99283

== ENCOUNTER 2021-07-03 06:33 | Emergency (ER) | payer SELFPAY ==
[2021-07-03 07:34] VITALS: BP 107/74
[2021-07-03] MEDS ORDERED: IBUPROFEN 800 MG TAB PO ONE (07:52)
--- NOTE | 2021-07-03 08:03 | Emergency Department Report ---
HPI - General Chief Complaint: Shoulder Injury Time Seen by Provider: 07/03/21 07:43 - HPI HPI: MSE 7 The patient is a 30-year-old female present with a chief complaint of left shoulder pain. Patient states she woke up yesterday morning with pain in her left shoulder. Patient states she does usually sleep on her left side so is possible she slept on it the wrong way. Patient denies any direct trauma or history of fever. Patient denies any previous episodes of the same. There is no paresthesia. Patient states she feels as though her left arm is bigger than right ED Past Medical Hx - Past Medical History Previous Medical History?: Yes Additional medical history: Vaginal delivery x 4 - Surgical History Past Surgical History?: No - Family History Family history: no significant - Social History Smoking Status: Never Smoker Substance Use Type: None (Denies illicit drug use) - Medications Home Medications: Home Medications Medication Instructions Recorded Confirmed Last Taken Type Naproxen [Naprosyn] 500 mg PO BID #20 tablet 04/20/19 Unknown Rx Ibuprofen [Motrin 800 MG tab] 800 mg PO Q8HR PRN #30 tablet 08/13/19 Unknown Rx Naproxen 500 mg PO Q12H PRN #12 tablet 03/04/20 Unknown Rx Naproxen 500 mg PO Q12H PRN #12 tablet 05/03/20 Unknown Rx Colchicine 0.6 mg PO ONCE 1 Days #3 tablet 04/27/21 Unknown Rx Naproxen 500 mg PO BID PRN #20 tablet 04/27/21 Unknown Rx predniSONE [Deltasone] 40 mg PO QDAY 5 Days #10 tab 04/27/21 Unknown Rx Indomethacin [Indocin] 25 mg PO Q8H PRN #21 capsule 06/10/21 Unknown Rx ED Review of Systems ROS: Stated complaint: lt shoulder pains Other details as noted in HPI Constitutional: denies: fever Eyes: denies: eye pain ENT: denies: throat pain Respiratory: no symptoms reported Cardiovascular: denies: chest pain Endocrine: no symptoms reported Gastrointestinal: denies: abdominal pain Musculoskeletal: arthralgia, myalgia Neurological: denies: headache, paresthesias Physical Exam - Physical Exam Vital Signs: Vital Signs 07/03/21 07:30 Temperature 99.1 F Pulse Rate 96 H Respiratory 16 Rate Blood Pressure 107/74 [Right] O2 Sat by Pulse 96 Oximetry Physical Exam: GENERAL: The patient is well-developed well-nourished female lying on stretcher not appearing to be in acute distress. [] HEENT: Normocephalic. Atraumatic. Extraocular motions are intact. Patient has moist mucous membranes. NECK: Supple. Trachea midline CHEST/LUNGS: There is no respiratory distress noted. HEART/CARDIOVASCULAR: Regular. There is no tachycardia. 2+ left radial pulse. Normal capillary refill digits of the left hand SKIN: There is no rash. There is no erythema noted to the left shoulder NEURO: The patient is awake, alert, and oriented. The patient is cooperative. The patient has no focal neurologic deficits. The patient has normal speech. Radial/median/ulnar nerve function intact MUSCULOSKELETAL: There is limited range of motion of the left shoulder secondary to pain ED Course Vital Signs 07/03/21 07:30 Temperature 99.1 F Pulse Rate 96 H Respiratory 16 Rate Blood Pressure 107/74 [Right] O2 Sat by Pulse 96 Oximetry - Reevaluation(s) Reevaluation #1: 07/03/21 09:09 patient left AMA prior to Doppler ED Medical Decision Making - Radiology Data Radiology results: report reviewed (Left shoulder x-ray), image reviewed (Left shoulder x-ray) interpreted by me: Left shoulder x-ray-no acute fracture, no dislocation LEFT SHOULDER, 3 VIEWS INDICATION / CLINICAL INFORMATION: lt shoulder pain limited movement. COMPARISON: None available. FINDINGS: The left shoulder is intact and appears unremarkable. No fracture, dislocation, or significant degenerative change is noted. No soft tissue abnormality. IMPRESSION: No significant abnormality. Signer Name: Shellie Bernard MD Signed: 07/03/2021 5:15 AM Workstation Name: [id number] - Differential Diagnosis Bursitis, myalgia, arthritis, DVT Critical care attestation.: If time is entered above; I have spent that time in minutes in the direct care of this critically ill patient, excluding procedure time. ED Disposition Clinical Impression: Left shoulder pain Disposition: 07 LEFT AGAINST MEDICAL ADVICE Is pt being admited?: No Does the pt Need Aspirin: No Condition: Undetermined Referrals: PRIMARY CARE, [Primary Care Provider] - 3-5 Days Forms: AMA Form Time of Disposition: 09:09 (Patient left AMA)
--- NOTE | 2021-07-03 13:46 | XRay Report ---
LEFT SHOULDER, 3 VIEWS INDICATION / CLINICAL INFORMATION: lt shoulder pain limited movement. COMPARISON: None available. FINDINGS: The left shoulder is intact and appears unremarkable. No fracture, dislocation, or significant degene rative change is noted. No soft tissue abnormality. IMPRESSION: No significant abnormality. Signer Name: Shellie Bernard MD Signed: 07/03/2021 6:15 AM Workstation Name: [id number]
== END 2021-07-03 10:00 | disposition left against medical advice (07) ==
LOC: ED 06:33
DX: M25.512 Pain in left shoulder (principal)
CPT/HCPCS: 99283

== ENCOUNTER 2021-07-21 15:18 | Emergency (ER) | payer SELFPAY ==
[2021-07-21 15:40] VITALS: BP 127/73
--- NOTE | 2021-07-21 16:15 | Emergency Department Report ---
ED Extremity Problem HPI - General Chief complaint: Extremity Problem,Nontraumatic Stated complaint: LT SHOULDER PAIN/LT KNEE SWOLLEN Time Seen by Provider: 07/21/21 16:00 Source: patient Mode of arrival: Ambulatory Limitations: No Limitations - History of Present Illness Initial comments: 30-year-old -[place] female presents to the emergency room complaining of left shoulder left knee pain and swelling greater than 2 years. Patient has been seen here 8 times in the last 2 years for the same complaint but has not followed up with a primary care provider or assistant fitness manager. Patient denies any injury at all. She denies any worsening pain. States that his difficulty to walk at times. Patient reports she has been taking Tylenol and ibuprofen for pain. MD Complaint: joint swelling, joint paint - Related Data Previous Rx's Medication Instructions Recorded Last Taken Type Naproxen [Naprosyn] 500 mg PO BID #20 tablet 04/20/19 Unknown Rx Ibuprofen [Motrin 800 MG tab] 800 mg PO Q8HR PRN #30 tablet 08/13/19 Unknown Rx Naproxen 500 mg PO Q12H PRN #12 tablet 03/04/20 Unknown Rx Naproxen 500 mg PO Q12H PRN #12 tablet 05/03/20 Unknown Rx Colchicine 0.6 mg PO ONCE 1 Days #3 tablet 04/27/21 Unknown Rx Naproxen 500 mg PO BID PRN #20 tablet 04/27/21 Unknown Rx predniSONE [Deltasone] 40 mg PO QDAY 5 Days #10 tab 04/27/21 Unknown Rx Indomethacin [Indocin] 25 mg PO Q8H PRN #21 capsule 06/10/21 Unknown Rx Allergies Allergy/AdvReac Type Severity Reaction Status Date / Time No Known Allergies Allergy Verified 06/10/21 15:46 ED Review of Systems ROS: Stated complaint: LT SHOULDER PAIN/LT KNEE SWOLLEN Other details as noted in HPI ED Past Medical Hx - Past Medical History Additional medical history: Vaginal delivery x 4 - Social History Smoking Status: Never Smoker Substance Use Type: None (Denies illicit drug use) - Medications Home Medications: Home Medications Medication Instructions Recorded Confirmed Last Taken Type Naproxen [Naprosyn] 500 mg PO BID #20 tablet 04/20/19 Unknown Rx Ibuprofen [Motrin 800 MG tab] 800 mg PO Q8HR PRN #30 tablet 08/13/19 Unknown Rx Naproxen 500 mg PO Q12H PRN #12 tablet 03/04/20 Unknown Rx Naproxen 500 mg PO Q12H PRN #12 tablet 05/03/20 Unknown Rx Colchicine 0.6 mg PO ONCE 1 Days #3 tablet 04/27/21 Unknown Rx Naproxen 500 mg PO BID PRN #20 tablet 04/27/21 Unknown Rx predniSONE [Deltasone] 40 mg PO QDAY 5 Days #10 tab 04/27/21 Unknown Rx Indomethacin [Indocin] 25 mg PO Q8H PRN #21 capsule 06/10/21 Unknown Rx ED Physical Exam - General Limitations: No Limitations General appearance: alert, in no apparent distress - Head Head exam: Present: atraumatic, normocephalic - Eye Eye exam: Present: normal appearance - ENT ENT exam: Present: normal external ear exam - Neck Neck exam: Present: normal inspection, full ROM - Respiratory Respiratory exam: Absent: respiratory distress, accessory muscle use - Cardiovascular Cardiovascular Exam: Present: regular rate - Extremities Exam Extremities exam: Present: other (Patient is walking with 1 crutch under her right shoulder with slide on slippers) - Expanded Upper Extremity Exam Left Shoulder Exam: Present: full ROM. Absent: swelling Upper Arm exam: Present: normal inspection Elbow exam: Present: normal inspection. Absent: full ROM Forearm Wrist exam: Present: full ROM. Absent: normal inspection Hand Wrist exam: Present: normal inspection. Absent: full ROM - Expanded Lower Extremity Exam Left Hip exam: Present: normal inspection Upper Leg exam: Present: normal inspection Knee exam: Present: full ROM, tenderness, effusion Lower Leg exam: Present: normal inspection, full ROM Ankle exam: Present: normal inspection Foot/Toe exam: Present: normal inspection Neuro vascular tendon exam: Present: no vascular compromise Gait: Positive: observed and limited by pain - Back Exam Back exam: Present: normal inspection - Neurological Exam Neurological exam: Present: alert, oriented X3 - Psychiatric Psychiatric exam: Present: normal affect, normal mood - Skin Skin exam: Present: warm, dry, intact, normal color. Absent: rash ED Course Vital Signs 07/21/21 15:39 Temperature 98.7 F Pulse Rate 107 H Respiratory 16 Rate Blood Pressure 127/73 [Right] O2 Sat by Pulse 100 Oximetry ED Medical Decision Making - Radiology Data Radiology results: report reviewed [facility] [address] [place] [address] XRay Report Signed Patient: RAMONA BERNAL MR#: [id number] : 1990 Acct:[id number] Age/Sex: 30 / F ADM Date: 07/03/21 Loc: ED Attending Dr: Ordering Physician: PUNEET GONSALES MD Date of Service: 07/03/21 Procedure(s): XR shoulder 2+V LT Accession Number(s): [id number] cc: PUNEET GONSALES MD Fluoro Time In Minutes: LEFT SHOULDER, 3 VIEWS INDICATION / CLINICAL INFORMATION: lt shoulder pain limited movement. COMPARISON: None available. FINDINGS: The left shoulder is intact and appears unremarkable. No fracture, dislocation, or significant degenerative change is noted. No soft tissue abnormality. IMPRESSION: No significant abnormality. Signer Name: Shellie Bernard MD Signed: 07/03/2021 6:15 AM Workstation Name: [id number] Transcribed By: JR Dictated By: Shellie Bernard MD Electronically Authenticated By: Shellie Bernard MD Signed Date/Time: 07/03/21 1342 DD/ TD/TT: Print - Medical Decision Making 30-year-old -[place] female presents to the emergency room complaining of left shoulder left knee pain and swelling greater than 2 years. Patient has been seen here 8 times in the last 2 years for the same complaint but has not followed up with a primary care provider or assistant fitness manager. Patient denies any injury at all. She denies any worsening pain. States that his difficulty to walk at times. Patient reports she has been taking Tylenol and ibuprofen for pain. Recommend that patient follows up with a primary care provider and her assistant fitness manager. This has been chronic for 2 years without any true follow-up. I discussed with patient she can continue with Tylenol and ibuprofen for pain management. Critical care attestation.: If time is entered above; I have spent that time in minutes in the direct care of this critically ill patient, excluding procedure time. ED Disposition Clinical Impression: Chronic joint pain Disposition: HOME / SELF CARE / HOMELESS Is pt being admited?: No Does the pt Need Aspirin: No Condition: Stable Instructions: Joint Pain, [id number] Additional Instructions: Your chronic pain and swelling to your joints needs to be evaluated by primary care provider or assistant fitness manager. I have listed them below for your convenience. Referrals: CARMEN CALI MD [Staff Physician] - 3-5 Days JASON AMAYA MD [Referring] - 3-5 Days Forms: Work/School Release Form(ED) Time of Disposition: 16:16
== END 2021-07-21 17:17 | disposition home or self-care (01) ==
LOC: ED 15:18
DX: G89.29 Other chronic pain (principal); M25.50 Pain in unspecified joint
CPT/HCPCS: 99281

== ENCOUNTER 2021-10-23 11:03 | Emergency (ER) | payer SELFPAY | END 2021-10-23 17:41 | disposition left against medical advice (07) | LOC: ED 11:03 | DX: J02.9 Acute pharyngitis, unspecified (principal); Z53.21 Procedure and treatment not carried out due to patient leaving prior to being seen by health care provider ==